=== PATIENT | male | born 1955 | race Hispanic/Latino ===

== ENCOUNTER → 2018-11-17 | Outpatient (CLI) | payer OTHER ==
--- NOTE | 2018-11-17 09:27 | Diagnostic Imaging Report ---
EXAMINATION: Abdominal ultrasound. CLINICAL INDICATION: Acute pancreatitis COMPARISON: None DISCUSSION: Transverse and longitudinal images of the upper abdomen were obtained. The liver is normal in size measuring 15.6 centimeters in length in the right midclavicular line and shows increased echogenicity. No focal masses are seen in the liver. There is no intrahepatic biliary dilatation. The common bile duct measures 0.4 cm. The main portal vein is normal in caliber and measures 1.5 cm with normal hepatopetal flow. The gallbladder is normal in appearance without stones, wall thickening or pericholecystic fluid. The sonographic Crespo's sign is negative. Pancreas poorly visualized due to bowel gas. The spleen is normal in echogenicity and size measuring 10.6 centimeters in length. The right kidney measures 11.4 centimeters in length and the left kidney measures 11.5 centimeters. There is normal renal cortical echogenicity and no hydronephrosis, solid mass or shadowing calculi. The visualized portions of the great vessels are normal. No free fluid is seen. IMPRESSION: Increased hepatic echogenicity can be seen in hepatic steatosis or other chronic inflammatory condition. Poor visualization of the pancreas due to bowel gas. No cholelithiasis. Signed by: Dr. Bartolome Vasquez M.D. on 11/17/2018 9:23 AM
== END ==
LOC: US 07:52
PROVIDERS: ATTEND Nurse Practitioner Adult Health
DX: K85.90 Acute pancreatitis without necrosis or infection, unspecified (principal)
CPT/HCPCS: 76700